=== PATIENT | female | born 1995 | race Caucasian/White ===

== ENCOUNTER 2020-04-03 18:49 | Outpatient (CLI) | payer BC ==
--- NOTE | 2020-04-04 10:47 | Ultrasound Report ---
PROCEDURE: OB First Trimester w/TV INDICATIONS: 1ST TRIMESTER DATING OUTSIDE/PRIOR DATING DATA: Last menstrual period (LMP): 02/09/2020. LMP-based estimated date of delivery (DILAN): 11/15/2020. First dating scan (date and location): 04/03/2020. Estimated date of delivery (DILAN) from first dating scan: 11/17/2020. TECHNIQUE: Real-time scanning was performed of the fetus and maternal pelvic organs, with image documentation. Endovaginal scanning was also performed to better visualize the fetus and maternal ovaries. COMPARISON: None FINDINGS: There is a single living intrauterine gestation with crown-rump length 1.2 cm which correl ates with a gestational age of 7 weeks 3 days, +/- 5 days. heart rate is observed at 1 53 bpm. Maternal cervix appears normal. Measurement variability in dating: +/- 4 weeks by LMP, +/- 7 days by mean sac diameter (use before 6 weeks gestation if crown-rump length not able to be measured), +/- 5 days by crown-rump length (6-12 weeks gestation). Maternal organs: Ovaries appear normal considering gestational status. Limited images through the k idneys demonstrate no hydronephrosis. IMPRESSION: Early first trimester gestation, with estimated gestational age 7 weeks 3 days, +/- 5 days, with deli very date projected to be centered on 11/17/2020. Follow-up anatomic survey at 20 weeks gestatio n is recommended. Reviewed by: Genaro Akhtar MD on 04/04/2020 10:46 AM PST Approved by: Genaro Akhtar MD on 04/04/2020 10:46 AM PST Station ID: [id number]
== END 2020-04-03 18:50 | disposition home or self-care (01) ==
LOC: DI 18:49
PROVIDERS: ATTEND Midwife
DX: Z34.01 Encounter for supervision of normal first pregnancy, first trimester (principal)